=== PATIENT | female | born 1995 | race Two or more races ===

== ENCOUNTER 2020-03-05 13:55 | Emergency (ER) | payer MEDICAID, SELFPAY ==
[2020-03-05 14:01] VITALS: BP 163/83; PULSE 89; RESP 14; TEMP 36.9; O2SAT 99
[2020-03-05 14:13] LABS: Bilirubin Small (Negative); Blood Negative (Negative); Clarity Clear (Clear); Glucose Negative (Negative); Ketones 40 mg/dL (Negative); Leukocyte Esterase Small (Negative); Nitrite Negative (Negative); Specific Gravity >= 1.030 (1.005-1.025)
--- NOTE | 2020-03-05 14:17 | ED.GENADUL_ITS ---
Discharge Plan Disposition Patient Disposition: HOME Condition: Stable Discharge Details Chief Complaint: Urinary Clinical Impression: UTI (urinary tract infection) Primary Care Provider: None,None ED Provider: Keagan Lewis Home Meds and New Rx's Prescriptions: New cephalexin [Keflex] 500 mg capsule 500 mg PO BID Qty: 10 RF: 0 Discharge Instructions Instructions: Urinary Tract Infection in Women (ED) Additional Instructions: Please take full course of antibiotic as prescribed. If you are not interested in having additional children at this time, please use control. Discussed control options with gynecology. In the interim you may wish to pursue barrier protection including condoms. Return to the ER for any worsening or new concerning symptoms. Referrals: Obdulio Cadet MD [ NON-[facility] STAFF PHYSICIAN] - Discharge Data Discharge Date/Time-TO BE ENTERED AT DEPARTURE: 03/05/20 14:47 Medical Decision Making 24-year-old female here with symptoms consistent with UTI. Patient is not septic. Urinalysis reviewed and consistent with UTI. Will start Keflex. Usual customary discharge instructions were provided. HPI General Mode of arrival: ambulatory . Date/Time Provider Initiated Documentation: 03/05/20 14:17 . Limitations to Documentation: no limitations . Information obtained by: patient . HPI Narrative: 24-year-old female here with chief complaint of dysuria. Symptoms started yesterday. Pain described as burning. Increased urinary frequency. No hematuria. No vaginal discharge. No abdominal pelvic pain. She does note subjective fever. Related Data Home Medications Medication Instructions Recorded Confirmed cephalexin [Keflex] 500 mg PO BID #10 cap 03/05/20 Previous Rx's Medication Instructions Recorded cephalexin [Keflex] 500 mg PO BID #10 cap 03/05/20 Allergies Allergy/AdvReac Type Severity Reaction Status Date / Time No Known Allergies Allergy Unverified 03/05/20 14:17 General Stated Complaint: Urinary LUIS F: 3 Review of Systems All systems reviewed & are unremarkable except as noted in HPI and below Constitutional Constitutional: Denies fever(s) Gastrointestinal Gastrointestinal: Denies vomiting Genitourinary Genitourinary: Reports as per HPI [facility] Social History Smoking/Tobacco Use Status: Never Alcohol Intake: never Substance use type: heroin Details: Reports weekly use of heroin. Do you feel safe at home: Yes Do you feel safe in your relationship?: Yes Exam Const General: cooperative and no acute distress [facility] Head: normocephalic and atraumatic Mouth: moist mucous membranes Eyes Conjunctivae: normal conjunctivae Sclera: normal sclerae Resp Auscultation: clear to auscultation bilaterally, no rales, no rhonchi and no wheezes Cardio Rate: regular rate and not tachycardic Rhythm: regular rhythm GI Palpation: soft, not firm, no guarding, no masses, not rigid and nontender Back/Spine/Pelvis Back: no CVA tenderness Skin General skin exam: no rashes or lesions noted Neuro General: patient alert, patient awake, patient oriented x3 and tone normal Extrem General: no edema Psych Appearance: grossly normal Mental Status: mental status grossly normal Course Vital Signs Vital signs: Vital Signs Temperature 36.9 C 03/05/20 14:01 Pulse 89 03/05/20 14:01 Respiratory Rate 14 03/05/20 14:01 Blood Pressure 163/83 H 03/05/20 14:01 Pulse Oximetry 99 03/05/20 14:01 Temperature 36.9 C 03/05/20 14:01 Temperature Source Tympanic 03/05/20 14:01 Pulse 89 03/05/20 14:01 Respiratory Rate 14 03/05/20 14:01 Respiratory Effort Non-Labored 03/05/20 14:16 Blood Pressure 163/83 H 03/05/20 14:01 Blood Pressure Position Sitting 03/05/20 14:01 Pulse Oximetry 99 03/05/20 14:01 Oxygen Delivery Method Room Air 03/05/20 14:01 Oxygen Flow Rate 0 03/05/20 14:01 Pain Level 2 03/05/20 14:09
[2020-03-05 14:30] LABS: WBC 20-50 HPF (0-5)
[2020-03-05 14:31] LABS: Bacteria Few HPF (Negative); C & S Indicated? No/Sq. Contamination
[2020-03-05] MEDS: Cephalexin 500 MG CAP PO (14:45)
--- NOTE | 2020-03-05 15:43 | NUR.NOTE ---
Referral faxed to [facility] to establish.Nursing Note:
== END 2020-03-05 14:47 | disposition home or self-care (01) ==
PROVIDERS: Emergency Provider Student in an Organized Health Care Education/Training Program
DX: N39.0 Urinary tract infection, site not specified (principal)
CPT/HCPCS: 81025; 99283; 81003; 81015

== ENCOUNTER 2020-10-16 12:09 | Outpatient (REF) | payer MEDICAID, SELFPAY ==
--- OUTSIDE RECORDS SUMMARY | 2020-10-16 12:11 | XMS_ITS ---
:1995 Author Care Team Providers Name Role Phone Sabino Sanderson Primary Care Provider Unavailable Allergies Code Code System Name Reaction Severity Status Onset NKDA ? Medications Name Status Start Date Stop Date ? ? methadone Active ? Not available Problems Name Status Onset Date Source ? Preoperative Cardiovascular Examination Active 03/29/20 20 ? Procedures Date Name Performed by ? ? Cesarian Section Information not avai lable Results Lab Results None recorded. Past Encounters 03/29/2020 Preoperative Cardiovascular Examination Sabino Sanderson MD: [address] [place] [phone], Ph. Social History Tobacco Smoking Status Never Smoker Vaccine List None recorded. Plan of Care Reminders Provider Appointments None ? ? recorded. Lab None ? ? recorded. Referral None ? ? recorded. Procedures None ? ? recorded. Surgeries None ? ? recorded. Imaging None ? ? recorded. Vitals Height Weight BMI Blood Pressure 5 ft 5 in 155 lbs 25.8 kg/m2 128/78 mm[Hg]
[2020-10-16 13:52] LABS: HCT 42.2 % (36.0-46.0); HGB 13.8 g/dL (11.2-15.7); MCH 25.8 pg (27.0-33.0); MCHC 32.7 % (32.0-36.0); MPV 8.7 fL (8.0-11.0); Platelet Count 238 10^3/uL (130-400); RBC 5.34 10^6/uL (3.93-5.22); RDW-SD 39.8 fL; WBC 8.65 10^3/uL (4.4-10.8)
[2020-10-16 14:04] LABS: INR 1.1 (0.9-1.1); Prothrombin Time 10.6 sec (9.3-11.0)
[2020-10-16 14:21] LABS: Anion Gap 8.3 mmol/L (3-11); BUN 14 mg/dL (7-18); CO2 29.7 mmol/L (21.0-32.0); CREATININE 0.8 mg/dL (0.55-1.02); Calcium 9.3 mg/dL (8.5-10.1); Chloride 104 mmol/L (98-107); Glucose 96 mg/dL (74-106); Potassium 3.5 mmol/L (3.5-5.1); Sodium 142 mmol/L (136-145)
[2020-10-16 14:22] LABS: HCG Quant, Pregnancy < 1 mIU/mL (1-3)
== END 2020-10-16 12:10 | disposition home or self-care (01) ==
LOC: NCHCN 12:09
PROVIDERS: PCP Physician Assistant; Visit Provider Physician Assistant
DX: Z01.818 Encounter for other preprocedural examination (principal); Z01.812 Encounter for preprocedural laboratory examination
CPT/HCPCS: 80048; 85027; 84702; 85610

== ENCOUNTER 2020-12-29 15:55 | Emergency (ER) | payer MEDICAID, SELFPAY ==
[2020-12-29 16:05] VITALS: BP 110/68; PULSE 62; RESP 18; TEMP 36.8; O2SAT 99
--- NOTE | 2020-12-29 16:22 | ED.GENADUL_ITS ---
Discharge Plan Disposition Patient Disposition: HOME Condition: Good Discharge Details Clinical Impression: Dysuria Primary Care Provider: Tom Payne ED Provider: Bonita Lizama Home Meds and New Rx's Prescriptions: New cephalexin 500 mg capsule 500 mg PO BID Qty: 14 RF: 0 No Action methadone 10 mg tablet 100 mg PO DAILY RF: 0 cephalexin [Keflex] 500 mg capsule 500 mg PO BID Qty: 10 RF: 0 Discharge Instructions Instructions: Dysuria (ED) Additional Instructions: Take antibiotic as prescribed until completed Yogurt daily while on antibiotic If you continue to have episodes, I recommend you follow-up with urology If your symptoms are not completely resolved with the antibiotic, you may need additional evaluation should be reevaluated by your primary care physician Please return with fever, chills, or with any new or worsening complaints Discharge Data Discharge Date/Time-TO BE ENTERED AT DEPARTURE: 12/29/20 19:10 Medical Decision Making Patient is alert, oriented, of decisional capacity, unfortunately patient's visit was prolonged of we are unable to obtain an adequate urinary specimen, she did receive a straight catheterization on the third attempt and urine did not actually show acute abnormality Had a long discussion with patient and recommended pelvic exam to exclude a sexually transmitted disease, patient has declined, she is alert, oriented, of decisional capacity, I did agree to give patient Keflex and I did encourage her to have close outpatient follow-up I do not believe urinary tract infection is the source of her symptoms, I did send her urine for culture which is pending at this time She is afebrile and nontoxic She is aware she needs close outpatient reevaluation No clinical evidence of pyelonephritis, declined pelvic exam, negative Differential Diagnosis Differential Diagnosis: Urinary tract infection, pyelonephritis, sexually transmitted disease, preg Medical Records Medical records reviewed: Yes I reviewed the patient's medical records. Lab Data Lab results reviewed: Yes I reviewed the patient's lab results. HPI this 25 yo female presents with report of dysuria for the past week with suprapubic pressure. denies hematuria or unilateral flank pain. reports fever without chills. denies known chance of or new sexual partner. denies risk of std or unusual vaginal discharge. denies nausea or vomiting. General Date/Time Provider Initiated Documentation: 12/29/20 16:11 . Related Data Home Medications Medication Instructions Recorded Confirmed cephalexin [Keflex] 500 mg PO BID #10 cap 03/05/20 methadone 10 mg tablet 100 mg PO DAILY tab 04/11/20 12/29/20 cephalexin 500 mg PO BID #14 cap 12/29/20 Previous Rx's Medication Instructions Recorded cephalexin [Keflex] 500 mg PO BID #10 cap 03/05/20 cephalexin 500 mg PO BID #14 cap 12/29/20 Allergies Allergy/AdvReac Type Severity Reaction Status Date / Time No Known Allergies Allergy Unverified 12/29/20 16:10 General Stated Complaint: Urinary LUIS F: 4 Review of Systems Narrative: Review of systems obtained x7 aside from where indicated in HPI PFSH Social History Smoking/Tobacco Use Status: Never Smoking risk assessment performed?: Yes Alcohol Intake: never Substance use type: heroin Details: Reports weekly use of heroin. Do you feel safe at home: Yes Do you feel safe in your relationship?: Yes Exam Const General: comfortable and no acute distress GI Other: No CVA tenderness No abdominal tenderness Skin General skin exam: no rashes or lesions noted Neuro General: patient alert and patient oriented x3 Course Vital Signs Vital signs: Vital Signs Temperature 36.8 C 12/29/20 16:05 Pulse 62 12/29/20 16:05 Respiratory Rate 18 12/29/20 16:05 Blood Pressure 110/68 12/29/20 16:05 Pulse Oximetry 99 12/29/20 16:05 Temperature 36.8 C 12/29/20 16:05 Temperature Source Temporal Artery Scan 12/29/20 16:05 Pulse 62 12/29/20 16:05 Respiratory Rate 18 12/29/20 16:05 Respiratory Effort Non-Labored 12/29/20 16:13 Blood Pressure 110/68 12/29/20 16:05 Blood Pressure Position Sitting 12/29/20 16:05 Pulse Oximetry 99 12/29/20 16:05 Oxygen Delivery Method Room Air 12/29/20 16:05 Oxygen Flow Rate 0 12/29/20 16:05 Pain Level 2 12/29/20 16:05
[2020-12-29 16:23] LABS: Bilirubin Negative (Negative); Blood Negative (Negative); Glucose Negative (Negative); Ketones Negative (Negative); Leukocyte Esterase Moderate (Negative); Nitrite Negative (Negative); Specific Gravity 1.015 (1.005-1.025); Urobilinogen 0.2 EU/dL (Up TO 0.2)
[2020-12-29 16:24] LABS: Clarity Cloudy (Clear)
[2020-12-29 16:33] LABS: Epithelial Cells Many HPF (Negative); Other Cells Negative (Negative); RBC Negative HPF (0-2); WBC 20-50 HPF (0-5)
[2020-12-29 16:34] LABS: Bacteria Moderate HPF (Negative); C & S Indicated? No/Sq. Contamination; Casts Negative LPF (Negative); Crystals Negative HPF (Negative); Mucus Negative (Negative)
[2020-12-29 17:30] LABS: Bacteria Moderate HPF (Negative); C & S Indicated? No/Sq. Contamination
[2020-12-29] MEDS: Cephalexin 500 MG CAP PO (19:03)
[2020-12-29 19:12] LABS: Bacteria Negative HPF (Negative); C & S Indicated? No; Casts Negative LPF (Negative); Crystals Negative HPF (Negative); Epithelial Cells Rare HPF (Negative); Mucus Negative (Negative); Other Cells Negative (Negative); RBC 0-2 HPF (0-2); WBC 0-2 HPF (0-5)
== END 2020-12-29 19:10 | disposition home or self-care (01) ==
PROVIDERS: Student in an Organized Health Care Education/Training Program; Emergency Provider Physician Assistant; PCP Physician Assistant
DX: R30.0 Dysuria (principal); R50.9 Fever, unspecified
CPT/HCPCS: 51701; 81025; 99283; 81003; 81015; 87086

== ENCOUNTER 2021-01-02 06:40 | Emergency (ER) | payer MEDICAID, SELFPAY ==
[2021-01-02] VITALS (83 sets, daily range): BP systolic 104–132; BP diastolic 57–82; PULSE 52–101; RESP 6–23; TEMP 36.6–37; O2SAT 94–100
--- NOTE | 2021-01-02 07:00 | RT.EKG_ITS ---
APPROVED REPORT Exam: Resting ECG Patient Location: E HR:66 bpm ECG Measurements Heart Rate 66 AXIS AL 134 P 21 QRSd 94 QRS 53 QT 408 T 15 QTc 419 Conclusion Sinus rhythm...normal P axis, V-rate 60- 99 Atrial premature complex...SV complex w/ short R-R interval
--- NOTE | 2021-01-02 07:00 | DI.CT_ITS ---
EXAM: CT HEAD WO CLINICAL HISTORY: seizure. TECHNIQUE: Imaging Protocol: Axial computed tomography images with coronal and sagittal reformatted images were created and reviewed COMPARISON: No exams were available for comparison FINDINGS: There are no skull fractures nor fluid in the visualized paranasal sinuses. There is no evidence of intracranial hemorrhage, mass effect, or shift of midline structures. There are no extra-axial fluid collections. The ventricles are not enlarged or shifted and there is no blo od within the ventricular system nor within the basal cisterns. There is a benign-appearing meningeal based 9 x 7 x 5 millimeter calcification on over the left parie noris region. Possibly small calcified meningioma. IMPRESSION: No acute intracranial findings on this noninfused CT scan of the brain. Meningeal based 9 x 7 x 5 millimeter high left parietal calcification, possibly representing small me ningioma. No significant mass effect upon the adjacent brain tissue. RADIATION DOSE DELIVERED: 784.86mGy.cm Total DLP DATA REPOSITORY: All CT scans at this facility are submitted to the National Radiology Data Registry (NRDR) Dose Index Registry (DIR) with the [employer] ([employer]). RADIATION OPTIMIZATION: All CT scans at this facility use at least one of these dose optimization te chniques: automated exposure control; mA and/or kV adjustment per patient size (includes targeted exa ms where dose is matched to clinical indication); or iterative reconstruction.
--- NOTE | 2021-01-02 07:05 | ED.GENADUL_ITS ---
Discharge Plan Disposition Patient Disposition: HOME Condition: Improving Discharge Details Clinical Impression: Seizure-like activity, Fever, Opiate use, Vaginal candidiasis, Bacterial vaginosis Primary Care Provider: Tom Payne ED Provider: Ciarra Vigil Home Meds and New Rx's Prescriptions: New metronidazole [Flagyl] 500 mg tablet 500 mg PO BID 7 Days Qty: 14 RF: 0 fluconazole [Diflucan] 150 mg tablet 150 mg PO ONCE Qty: 1 RF: 0 Continued methadone 10 mg tablet 100 mg PO DAILY RF: 0 Discontinued cephalexin 500 mg capsule 500 mg PO BID Qty: 14 RF: 0 Discharge Instructions Instructions: Fever in Adults (ED), Opioid Safety (ED), Opioid Use Disorder (ED) Additional Instructions: The CT scan of your head noted a small brain meningioma which may be an incidental finding and likely not the cause of your possible seizures. You have been given neurology information for follow-up for this for further evaluation. Drink plenty of fluids and get plenty of rest. Alternate tylenol and motrin as needed and directed for pain or fever. Your prescriptions have been sent electronically to your pharmacy. Call the pharmacy to make sure your prescriptions are ready before pickup. Take the prescriptions as directed. Follow-up with your primary care doctor in 1 week again and with neurology in the next 1 to 2 weeks. Return to the emergency department with any worsening or new concerning symptoms. Referrals: Anca Herrmann MD [ [facility] STAFF PHYSICIAN] - Discharge Data Discharge Date/Time-TO BE ENTERED AT DEPARTURE: 01/02/21 15:23 Discharge Physician: Ciarra Vigil Medical Decision Making <Hunter De La Cruz MD - Last Filed: 01/02/21 07:15> 25 yo female with hx of heroin abuse (states only inhales doesn't inject) and last used this morning comes in after what her fiance told ems was seizure like episode. She was seen here on 12/29 and placed on cephalexin for possible uti. She states she has still not been feeling well and had a fever yesterday to 102 per patient. She has no chest pain, cough, rashes, severe headache, neck stiffness. She has no abdominal tenderness on exam, no murmurs, and no stigmata of endocarditis. No meningismus on exam. She is caox4 with no focal motor or sensation deficits with clear speech. I attempted to call her fiance to get a description of what he saw but he did not answer and his voicemail was full so a message could not be left. Unclear cause for her general feeling of being unwell and no clear source for fever yesterday on history or exam. Given her symptoms will obtain labs including blood cultures and lactate, and given the seizure obtain a head ct to evaluate for intracranial pathology such as a mass. Patient may end up requiring an LP to evaluate for possible mounting machine operator infection given the fever and seizure episode today. Pt signed out to oncoming provider pending labs and ct, and final disposition Differential Diagnosis Differential Diagnosis: seizure, sepsis, uti, pneumonia, mounting machine operator infection <Ciarra Vigil DO - Last Filed: 01/03/21 13:42> 0800 --please see Dr. De La Cruz's note for initial presentation, exam and plan. 25-year-old female with a history of recent stopping of her methadone use with daily snorting of heroin use presents for potential seizure-like episode today. Patient was seen here 4 days ago and diagnosed with a UTI and started on Keflex. She denies any change in her urinary frequency or urgency. She admits to a temp of 102 temporal yesterday. She is mainly complaining of nausea at this time. She denies any headache, neck pain, chest pain, shortness of breath, abdominal pain or abnormal vaginal discharge. She states she did have some lower abdominal pain yesterday. Review of her results notes that her urine culture was negative. Dr. De La Cruz discussed that with the concern of fever and potential seizure, to consider a lumbar puncture. He attempted to reach her fianc? but was unable. Patient's right side of her tongue does appear to have a contusion/abrasion consistent with tongue biting injury. She otherwise has no focal deficit and no meningismus or nuchal rigidity on exam. I discussed with patient my recommendation for LP in the setting of fever and seizure but she is refusing. The risks of and disability due to a serious or missed pathology explained and she understands. She is oriented and demonstrates capacity to make decisions. Patient was referred for labs and imaging. Her white blood cell count is 11.5. Her lactate is normal at 1.4. Urinalysis notes trace leukocyte esterase with many epis, few bacteria and negative nitrite but culture done as ordered. UDS positive for opiates, methadone, benzos. Alcohol level negative. Rapid Covid negative. CT head notes a potential 9 x 7 x 5 mm small meningioma but otherwise no acute findings. CT chest abdomen and pelvis notes abundant fecal material and difficult to locate the appendix but no other signs of acute inflammation. There was no evidence of pneumonia or other acute findings. 0930 -- CT had reviewed with Dr. Herrmann who noted that this may be likely incidental and would not be a cause of seizure or preclude LP. 1000 -- Results discussed with patient at bedside and she is requesting to go home. Results also discussed with patient's fianc? over the phone per her consent. I advised that patient stay for lumbar puncture and further evaluation but she is refusing. She again is able to voice back to me my concerns and demonstrates capacity to make decisions. Patient left the room multiple times and walked into the ambulance bay waiting for her ride. AMA form signed. The patient understands her condition and the risks of leaving AMA, including BUT NOT LIMITED TO permanent disability, , etc., and has had an opportunity to ask questions about his/her medical condition. The patient has been informed that he/she may return for care at any time, and has been referred to his/her local medical physician for follow up KATIE. Patient laying in the stretcher while waiting for her ride. Vitals rechecked and stable. 1130 -- pt laying in the stretcher and noted to have twitching activity/neck spasm while awaiting for her ride. I again advised for her to stay in the hospital but she is refusing. She is awake and alert and able to answer questions. She began to have additional more prolonged twitching but is awake and alert. She is now agreeable to stay for further evaluation. She is hesitant but now agreeable with plan for lumbar puncture. Will give a milligram of Ativan. 1220 --lumbar puncture done at bedside which patient tolerated well. Fluid appeared clear. Patient denies any acute complaints at this time. She appears more relaxed after Ativan and denies any headache. 1510 --CSF results noted negative WBCs and normal glucose and protein. There were some RBCs noted. Patient reassessed and she has been requesting to go home. Patient denies any acute complaints. Prescriptions for Diflucan and Flagyl sent electronically to her pharmacy for candidiasis and bacterial vaginosis. Patient offered to speak with the flag football coach but declined. She is familiar with the [facility] clinic and will contact them if she decides to refrain from any further opiate use and resume her methadone or consider Suboxone. She was also advised to stop taking her Keflex as her recent urine culture was negative. Patient was placed on follow-up list for Dr. Herrmann. Usual and customary return precautions given prior to discharge. Medical Records Medical records reviewed: Yes I reviewed the patient's medical records. Imaging Data Radiologic Study: Radiologist's impression: CT HEAD WO CLINICAL HISTORY: seizure. TECHNIQUE: Imaging Protocol: Axial computed tomography images with coronal and sagittal reformatted images were created and reviewed COMPARISON: No exams were available for comparison FINDINGS: There are no skull fractures nor fluid in the visualized paranasal sinuses. There is no evidence of intracranial hemorrhage, mass effect, or shift of midline structures. There are no extra-axial fluid collections. The ventricles are not enlarged or shifted and there is no blood within the ventricular system nor within the basal cisterns. There is a benign-appearing meningeal based 9 x 7 x 5 millimeter calcification on over the left parietal region. Possibly small calcified meningioma. IMPRESSION: No acute intracranial findings on this noninfused CT scan of the brain. Meningeal based 9 x 7 x 5 millimeter high left parietal calcification, possibly representing small meningioma. No significant mass effect upon the adjacent brain tissue. CT CHEST/ABD/PEL W CLINICAL HISTORY: fever, seizure, lower abd pain, r/o acute process. TECHNIQUE: Imaging Protocol: Axial computed tomography images with coronal and sagittal reformatted images were created and reviewed CONTRAST MATERIAL: Intravenous: Omnipaque 350 Contrast volume:100 ml Oral: None COMPARISON: No exams were available for comparison FINDINGS: CHEST: LUNGS: Mild increased markings pleural based in the superior segment right lower lobe. No confluent infiltrate at this level nor elsewhere in the lung hester and there are no pleural effusions. No ominous pulmonary nodules. There are no significant focal findings in the trachea and mainstem bronchi.. MEDIASTINUM: There is no hilar nor mediastinal adenopathy. Visualized thyroid unremarkable.Density in the anterior mediastinal fat is probably remnant thymus tissue. CARDIAC: Heart size is normal. There is no pericardial effusion.Caliber of the thoracic aorta is within normal limits. OSSEOUS: No significant osseous lesions.. ABDOMEN: There is no ascites. LIVER: There are no focal hepatic lesions nor dilatation of intrahepatic ducts. GALLBLADDER/BILIARY: No obvious gallbladder pathology. CBD is not dilated. PANCREAS: Appears somewhat thin for stated age. Pancreatic duct is not dilated. No obvious pancreatic mass. SPLEEN: Mild splenomegaly. No intrasplenic lesions. Splenic and portal veins are patent. ADRENALS: There are no significant adrenal masses. KIDNEYS: No calculi nor hydronephrosis. No solid renal masses. No cysts evident. ABDOMINAL AORTA: Abdominal aorta is not enlarged. LYMPH NODES: There is no retroperitoneal nor paraaortic adenopathy. ABDOMINAL WALL/GI: No evidence of significant anterior abdominal wall hernia. No bowel obstruction. PELVIS: LYMPH NODES: There is no intrapelvic nor inguinal adenopathy. GI: Appendix is difficult to identify separate structure. No obvious evidence of appendicitis.No evidence of sigmoid diverticulitis.. Abundant fecal material in the colon. URINARY BLADDER: No calculi nor masses evident REPRODUCTIVE: Appears age-appropriate OSSEOUS: No significant osseous lesions. 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 Minimal anterolisthesis of L5. No osseous lesions. IMPRESSION: 1. Abundant fecal material noted throughout the colon. No obvious appendicitis. The appendix is difficult to locate is a separate structure. 2. Mild splenomegaly noted. No intrasplenic lesions. 3. Minimal increased markings in the superior segment right lower lobe. No confluent infiltrate. No pleural effusions. No intrathoracic adenopathy. Lab Data Lab results reviewed: Yes I reviewed the patient's lab results. Labs: 01/02/21 10:25 Blood Blood Culture - Preliminary NO GROWTH 24 HOURS 01/02/21 07:40 Blood Blood Culture - Preliminary NO GROWTH 24 HOURS 01/02/21 12:30 Cerebrospinal Fluid Body Fluid Culture - Pending 01/02/21 12:30 Cerebrospinal Fluid Gram Stain - Final 01/02/21 10:00 Vaginal Vaginitis Screen - Final 01/02/21 07:50 Urine - Clean Catch Urine Culture - Pending Laboratory Tests Range/Units 01/02/21 01/02/21 01/02/21 07:05 07:25 07:40 WBC (4.4-10.8) 10^3/uL RBC (3.93-5.22) 10^6/uL Hgb (11.2-15.7) g/dL Hct (36.0-46.0) % MCV (80-95) fL MCH (27.0-33.0) pg MCHC (32.0-36.0) % RDW (11.7-14.6) % Plt Count (130-400) 10^3/uL MPV (8.0-11.0) fL Immature Gran % Neutrophils % Lymphocytes % Monocytes % Eosinophils % Basophils % Nucleated RBC % % Absolute Neutrophils (1.2-6.7) 10^3/uL Absolute Lymphocytes (1.2-3.4) 10^3/uL Absolute Monocytes (0.1-0.8) 10^3/uL Absolute Eosinophils (0.0-0.7) 10^3/uL Absolute Basophils (0.0-0.2) 10^3/uL Xanthochromia VBG Lactate (0.6-1.4) mmol/L Sodium (136-145) mmol/L 142 Potassium (3.5-5.1) mmol/L 4.0 Chloride (98-107) mmol/L 102 Carbon Dioxide (21.0-32.0) mmol/L 28.9 Anion Gap (3-11) mmol/L 11.1 H BUN (7-18) mg/dL 12 Creatinine (0.55-1.02) mg/dL 0.8 Estimated GFR/1.73 m2 (mL/min/1.73m2) >= 60.00 Glucose (74-106) mg/dL 103 Calcium (8.5-10.1) mg/dL 9.8 Total Bilirubin (0.2-1.0) mg/dL 0.9 Conjugated Bilirubin (0.0-0.2) mg/dL 0.2 AST (15-37) U/L 12 L ALT (14-59) U/L 17 Alkaline Phosphatase (46-116) U/L 113 Troponin I (<0.06) ng/mL Total Protein (6.4-8.2) g/dL 8.2 Albumin (3.4-5.0) g/dL 4.8 Urine Color (Yellow) Urine Clarity (Clear) Urine pH (5-8) Ur Specific [place] (1.005-1.025) Urine Protein (Negative) mg/dL Urine Ketones (Negative) mg/dL Urine Blood (Negative) Urine Nitrite (Negative) Urine Bilirubin (Negative) Urine Urobilinogen (Up TO 0.2) EU/dL Ur Leukocyte Esterase (Negative) Urine RBC (0-2) HPF Urine WBC (0-5) HPF Ur Epithelial Cells (Negative) HPF Urine Crystals (Negative) HPF Urine Bacteria (Negative) HPF Urine Casts (Negative) LPF Urine Mucus (Negative) Ur Culture Indicated? Urine Glucose (Negative) mg/dL CSF Tube Number CSF Color CSF Clarity CSF WBC (0-5) /uL CSF RBC (0-5) /mm3 CSF RBC (1) (0-5) /mm3 CSF Diff Comment CSF Glucose (40-70) mg/dL CSF Total Protein (15-45) mg/dL Urine Opiates Screen (Negative) Urine Methadone Screen (Negative) Ur Barbiturates Screen (Negative) Ur Tricyclics Screen (Negative) Ur Amphetamines Screen (Negative) U Benzodiazepines Scrn (Negative) Urine Cocaine Screen (Negative) Ur THC Screen (Negative) Ethyl Alcohol (<3) mg/dL < 3.0 Chlamydia/GC Source Chlamydia DNA Probe COVID-19 Source Cancelled Nasopharyx SARS-CoV-2 (PCR) Cancelled Negative HSV Source Description HSV I DNA PCR (Negative) HSV II DNA PCR (Negative) N.gonorrhoeae DNA Probe Range/Units 01/02/21 01/02/21 01/02/21 07:40 07:40 07:40 WBC (4.4-10.8) 10^3/uL 11.50 H RBC (3.93-5.22) 10^6/uL 5.29 H Hgb (11.2-15.7) g/dL 14.1 Hct (36.0-46.0) % 41.9 MCV (80-95) fL 79.2 L MCH (27.0-33.0) pg 26.7 L MCHC (32.0-36.0) % 33.7 RDW (11.7-14.6) % 13.2 Plt Count (130-400) 10^3/uL 245 MPV (8.0-11.0) fL 8.8 Immature Gran % 0.5 Neutrophils % 82.5 Lymphocytes % 10.9 Monocytes % 5.8 Eosinophils % 0.1 Basophils % 0.2 Nucleated RBC % % 0 Absolute Neutrophils (1.2-6.7) 10^3/uL 9.49 H Absolute Lymphocytes (1.2-3.4) 10^3/uL 1.25 Absolute Monocytes (0.1-0.8) 10^3/uL 0.67 Absolute Eosinophils (0.0-0.7) 10^3/uL 0.01 Absolute Basophils (0.0-0.2) 10^3/uL 0.02 Xanthochromia VBG Lactate (0.6-1.4) mmol/L 1.4 Sodium (136-145) mmol/L Potassium (3.5-5.1) mmol/L Chloride (98-107) mmol/L Carbon Dioxide (21.0-32.0) mmol/L Anion Gap (3-11) mmol/L BUN (7-18) mg/dL Creatinine (0.55-1.02) mg/dL Estimated GFR/1.73 m2 (mL/min/1.73m2) Glucose (74-106) mg/dL Calcium (8.5-10.1) mg/dL Total Bilirubin (0.2-1.0) mg/dL Conjugated Bilirubin (0.0-0.2) mg/dL AST (15-37) U/L ALT (14-59) U/L Alkaline Phosphatase (46-116) U/L Troponin I (<0.06) ng/mL < 0.05 Total Protein (6.4-8.2) g/dL Albumin (3.4-5.0) g/dL Urine Color (Yellow) Urine Clarity (Clear) Urine pH (5-8) Ur Specific [place] (1.005-1.025) Urine Protein (Negative) mg/dL Urine Ketones (Negative) mg/dL Urine Blood (Negative) Urine Nitrite (Negative) Urine Bilirubin (Negative) Urine Urobilinogen (Up TO 0.2) EU/dL Ur Leukocyte Esterase (Negative) Urine RBC (0-2) HPF Urine WBC (0-5) HPF Ur Epithelial Cells (Negative) HPF Urine Crystals (Negative) HPF Urine Bacteria (Negative) HPF Urine Casts (Negative) LPF Urine Mucus (Negative) Ur Culture Indicated? Urine Glucose (Negative) mg/dL CSF Tube Number CSF Color CSF Clarity CSF WBC (0-5) /uL CSF RBC (0-5) /mm3 CSF RBC (1) (0-5) /mm3 CSF Diff Comment CSF Glucose (40-70) mg/dL CSF Total Protein (15-45) mg/dL Urine Opiates Screen (Negative) Urine Methadone Screen (Negative) Ur Barbiturates Screen (Negative) Ur Tricyclics Screen (Negative) Ur Amphetamines Screen (Negative) U Benzodiazepines Scrn (Negative) Urine Cocaine Screen (Negative) Ur THC Screen (Negative) Ethyl Alcohol (<3) mg/dL Chlamydia/GC Source Chlamydia DNA Probe COVID-19 Source SARS-CoV-2 (PCR) HSV Source Description HSV I DNA PCR (Negative) HSV II DNA PCR (Negative) N.gonorrhoeae DNA Probe Range/Units 01/02/21 01/02/21 01/02/21 07:50 07:50 10:00 WBC (4.4-10.8) 10^3/uL RBC (3.93-5.22) 10^6/uL Hgb (11.2-15.7) g/dL Hct (36.0-46.0) % MCV (80-95) fL MCH (27.0-33.0) pg MCHC (32.0-36.0) % RDW (11.7-14.6) % Plt Count (130-400) 10^3/uL MPV (8.0-11.0) fL Immature Gran % Neutrophils % Lymphocytes % Monocytes % Eosinophils % Basophils % Nucleated RBC % % Absolute Neutrophils (1.2-6.7) 10^3/uL Absolute Lymphocytes (1.2-3.4) 10^3/uL Absolute Monocytes (0.1-0.8) 10^3/uL Absolute Eosinophils (0.0-0.7) 10^3/uL Absolute Basophils (0.0-0.2) 10^3/uL Xanthochromia VBG Lactate (0.6-1.4) mmol/L Sodium (136-145) mmol/L Potassium (3.5-5.1) mmol/L Chloride (98-107) mmol/L Carbon Dioxide (21.0-32.0) mmol/L Anion Gap (3-11) mmol/L BUN (7-18) mg/dL Creatinine (0.55-1.02) mg/dL Estimated GFR/1.73 m2 (mL/min/1.73m2) Glucose (74-106) mg/dL Calcium (8.5-10.1) mg/dL Total Bilirubin (0.2-1.0) mg/dL Conjugated Bilirubin (0.0-0.2) mg/dL AST (15-37) U/L ALT (14-59) U/L Alkaline Phosphatase (46-116) U/L Troponin I (<0.06) ng/mL Total Protein (6.4-8.2) g/dL Albumin (3.4-5.0) g/dL Urine Color (Yellow) Yellow Urine Clarity (Clear) Sl cloudy Urine pH (5-8) 8.5 H Ur Specific [place] (1.005-1.025) 1.020 Urine Protein (Negative) mg/dL Negative Urine Ketones (Negative) mg/dL 40 H Urine Blood (Negative) Trace-intact H Urine Nitrite (Negative) Negative Urine Bilirubin (Negative) Negative Urine Urobilinogen (Up TO 0.2) EU/dL 1.0 H Ur Leukocyte Esterase (Negative) Trace H Urine RBC (0-2) HPF 3-5 H Urine WBC (0-5) HPF 5-10 Ur Epithelial Cells (Negative) HPF Many Urine Crystals (Negative) HPF Negative Urine Bacteria (Negative) HPF Few Urine Casts (Negative) LPF Negative Urine Mucus (Negative) Negative Ur Culture Indicated? C&s done as ordered Urine Glucose (Negative) mg/dL Negative CSF Tube Number CSF Color CSF Clarity CSF WBC (0-5) /uL CSF RBC (0-5) /mm3 CSF RBC (1) (0-5) /mm3 CSF Diff Comment CSF Glucose (40-70) mg/dL CSF Total Protein (15-45) mg/dL Urine Opiates Screen (Negative) Positive A Urine Methadone Screen (Negative) Positive A Ur Barbiturates Screen (Negative) Negative Ur Tricyclics Screen (Negative) Negative Ur Amphetamines Screen (Negative) Negative U Benzodiazepines Scrn (Negative) Positive A Urine Cocaine Screen (Negative) Negative Ur THC Screen (Negative) Negative Ethyl Alcohol (<3) mg/dL Chlamydia/GC Source Cancelled Chlamydia DNA Probe Cancelled COVID-19 Source SARS-CoV-2 (PCR) HSV Source Description HSV I DNA PCR (Negative) HSV II DNA PCR (Negative) N.gonorrhoeae DNA Probe Cancelled Range/Units 01/02/21 01/02/21 01/02/21 10:10 12:30 12:30 WBC (4.4-10.8) 10^3/uL RBC (3.93-5.22) 10^6/uL Hgb (11.2-15.7) g/dL Hct (36.0-46.0) % MCV (80-95) fL MCH (27.0-33.0) pg MCHC (32.0-36.0) % RDW (11.7-14.6) % Plt Count (130-400) 10^3/uL MPV (8.0-11.0) fL Immature Gran % Neutrophils % Lymphocytes % Monocytes % Eosinophils % Basophils % Nucleated RBC % % Absolute Neutrophils (1.2-6.7) 10^3/uL Absolute Lymphocytes (1.2-3.4) 10^3/uL Absolute Monocytes (0.1-0.8) 10^3/uL Absolute Eosinophils (0.0-0.7) 10^3/uL Absolute Basophils (0.0-0.2) 10^3/uL Xanthochromia Absent VBG Lactate (0.6-1.4) mmol/L Sodium (136-145) mmol/L Potassium (3.5-5.1) mmol/L Chloride (98-107) mmol/L Carbon Dioxide (21.0-32.0) mmol/L Anion Gap (3-11) mmol/L BUN (7-18) mg/dL Creatinine (0.55-1.02) mg/dL Estimated GFR/1.73 m2 (mL/min/1.73m2) Glucose (74-106) mg/dL Calcium (8.5-10.1) mg/dL Total Bilirubin (0.2-1.0) mg/dL Conjugated Bilirubin (0.0-0.2) mg/dL AST (15-37) U/L ALT (14-59) U/L Alkaline Phosphatase (46-116) U/L Troponin I (<0.06) ng/mL Cancelled Total Protein (6.4-8.2) g/dL Albumin (3.4-5.0) g/dL Urine Color (Yellow) Urine Clarity (Clear) Urine pH (5-8) Ur Specific [place] (1.005-1.025) Urine Protein (Negative) mg/dL Urine Ketones (Negative) mg/dL Urine Blood (Negative) Urine Nitrite (Negative) Urine Bilirubin (Negative) Urine Urobilinogen (Up TO 0.2) EU/dL Ur Leukocyte Esterase (Negative) Urine RBC (0-2) HPF Urine WBC (0-5) HPF Ur Epithelial Cells (Negative) HPF Urine Crystals (Negative) HPF Urine Bacteria (Negative) HPF Urine Casts (Negative) LPF Urine Mucus (Negative) Ur Culture Indicated? Urine Glucose (Negative) mg/dL CSF Tube Number 4 CSF Color Colorless CSF Clarity Clear CSF WBC (0-5) /uL 0 CSF RBC (0-5) /mm3 30 H CSF RBC (1) (0-5) /mm3 155 H CSF Diff Comment CSF Glucose (40-70) mg/dL CSF Total Protein (15-45) mg/dL Urine Opiates Screen (Negative) Urine Methadone Screen (Negative) Ur Barbiturates Screen (Negative) Ur Tricyclics Screen (Negative) Ur Amphetamines Screen (Negative) U Benzodiazepines Scrn (Negative) Urine Cocaine Screen (Negative) Ur THC Screen (Negative) Ethyl Alcohol (<3) mg/dL Chlamydia/GC Source Chlamydia DNA Probe COVID-19 Source SARS-CoV-2 (PCR) HSV Source Description Not Applicable HSV I DNA PCR (Negative) Negative HSV II DNA PCR (Negative) Negative N.gonorrhoeae DNA Probe Range/Units 01/02/21 12:30 WBC (4.4-10.8) 10^3/uL RBC (3.93-5.22) 10^6/uL Hgb (11.2-15.7) g/dL Hct (36.0-46.0) % MCV (80-95) fL MCH (27.0-33.0) pg MCHC (32.0-36.0) % RDW (11.7-14.6) % Plt Count (130-400) 10^3/uL MPV (8.0-11.0) fL Immature Gran % Neutrophils % Lymphocytes % Monocytes % Eosinophils % Basophils % Nucleated RBC % % Absolute Neutrophils (1.2-6.7) 10^3/uL Absolute Lymphocytes (1.2-3.4) 10^3/uL Absolute Monocytes (0.1-0.8) 10^3/uL Absolute Eosinophils (0.0-0.7) 10^3/uL Absolute Basophils (0.0-0.2) 10^3/uL Xanthochromia VBG Lactate (0.6-1.4) mmol/L Sodium (136-145) mmol/L Potassium (3.5-5.1) mmol/L Chloride (98-107) mmol/L Carbon Dioxide (21.0-32.0) mmol/L Anion Gap (3-11) mmol/L BUN (7-18) mg/dL Creatinine (0.55-1.02) mg/dL Estimated GFR/1.73 m2 (mL/min/1.73m2) Glucose (74-106) mg/dL Calcium (8.5-10.1) mg/dL Total Bilirubin (0.2-1.0) mg/dL Conjugated Bilirubin (0.0-0.2) mg/dL AST (15-37) U/L ALT (14-59) U/L Alkaline Phosphatase (46-116) U/L Troponin I (<0.06) ng/mL Total Protein (6.4-8.2) g/dL Albumin (3.4-5.0) g/dL Urine Color (Yellow) Urine Clarity (Clear) Urine pH (5-8) Ur Specific [place] (1.005-1.025) Urine Protein (Negative) mg/dL Urine Ketones (Negative) mg/dL Urine Blood (Negative) Urine Nitrite (Negative) Urine Bilirubin (Negative) Urine Urobilinogen (Up TO 0.2) EU/dL Ur Leukocyte Esterase (Negative) Urine RBC (0-2) HPF Urine WBC (0-5) HPF Ur Epithelial Cells (Negative) HPF Urine Crystals (Negative) HPF Urine Bacteria (Negative) HPF Urine Casts (Negative) LPF Urine Mucus (Negative) Ur Culture Indicated? Urine Glucose (Negative) mg/dL CSF Tube Number CSF Color CSF Clarity CSF WBC (0-5) /uL CSF RBC (0-5) /mm3 CSF RBC (1) (0-5) /mm3 CSF Diff Comment CSF Glucose (40-70) mg/dL 61 CSF Total Protein (15-45) mg/dL 27 Urine Opiates Screen (Negative) Urine Methadone Screen (Negative) Ur Barbiturates Screen (Negative) Ur Tricyclics Screen (Negative) Ur Amphetamines Screen (Negative) U Benzodiazepines Scrn (Negative) Urine Cocaine Screen (Negative) Ur THC Screen (Negative) Ethyl Alcohol (<3) mg/dL Chlamydia/GC Source Chlamydia DNA Probe COVID-19 Source SARS-CoV-2 (PCR) HSV Source Description HSV I DNA PCR (Negative) HSV II DNA PCR (Negative) N.gonorrhoeae DNA Probe ECG Data Attestation: I personally reviewed and interpreted this ECG (s) as follows: Interpretation: Rate of 66, sinus, no STEMI, nondiagnostic. UT 134. QRS 94. QTc 419. HPI <Hunter De La Cruz MD - Last Filed: 01/02/21 07:15> General Mode of arrival: ambulatory . Date/Time Provider Initiated Documentation: 01/02/21 06:53 . Limitations to Documentation: no limitations . Information obtained by: patient . History of Present Illness 25 year old F presents to the emergency department with the chief complaint of not feeling well, Patient started experiencing this day(s) (3) and it has been constant. No relieving factors improve symptom(s), No exacerbating factors reported . Patient notes fever/chills. Patient did receive the following treatments prior to arrival, none Related Data Home Medications Medication Instructions Recorded Confirmed methadone 10 mg tablet 100 mg PO DAILY tab 04/11/20 01/02/21 fluconazole [Diflucan] 150 mg PO ONCE #1 tab 01/02/21 metronidazole [Flagyl] 500 mg PO BID 7 Days #14 tab 01/02/21 Previous Rx's Medication Instructions Recorded fluconazole [Diflucan] 150 mg PO ONCE #1 tab 01/02/21 metronidazole [Flagyl] 500 mg PO BID 7 Days #14 tab 01/02/21 Allergies Allergy/AdvReac Type Severity Reaction Status Date / Time No Known Allergies Allergy Unverified 01/02/21 06:51 General Stated Complaint: Seizure LUIS F: 3 Review of Systems <Hunter De La Cruz MD - Last Filed: 01/02/21 07:15> All systems reviewed & are unremarkable except as noted in HPI and below Cardiovascular Cardiovascular: Denies chest pain and Denies dyspnea Respiratory Respiratory: Denies cough and Denies dyspnea Gastrointestinal Gastrointestinal: Denies abdominal pain and Denies vomiting PFSH <Hunter De La Cruz MD - Last Filed: 01/02/21 07:15> Medical History (Updated 01/02/21 @ 15:21 by Ciarra Vigil DO) Heroin abuse Social History Smoking/Tobacco Use Status: Never Smoking risk assessment performed?: Yes Alcohol Intake: never Drug use: Daily Substance use type: heroin Details: Reports weekly use of heroin. Do you feel safe at home: Yes Do you feel safe in your relationship?: Yes Exam <Hunter De La Cruz MD - Last Filed: 01/02/21 07:15> Const General: no acute distress Orientation: alert [facility] Head: normal to inspection Ears: external ears normal General nose exam: external nose normal Mouth: moist mucous membranes Eyes General: appearance normal, both eyes and all related structures Neck Neck: normal visual inspection Resp Effort & Inspection: normal respiratory effort and able to speak in complete sentences Cardio Rate: regular rate GI Palpation: soft and nontender Skin General skin exam: no rashes or lesions noted Neuro General: patient alert and patient oriented x3 Extrem General: normal to inspection Psych Mental Status: mental status grossly normal Course <Hunter De La Cruz MD - Last Filed: 01/02/21 07:15> Vital Signs Vital signs: Vital Signs Temperature 36.8 C 01/02/21 06:43 Pulse 80 01/02/21 06:43 Respiratory Rate 16 01/02/21 06:43 Blood Pressure 132/79 01/02/21 06:43 Pulse Oximetry 97 01/02/21 06:43 Temperature 36.8 C 01/02/21 06:43 Pulse 80 01/02/21 06:43 Respiratory Rate 16 01/02/21 06:43 Respiratory Effort Non-Labored 01/02/21 06:53 Respiratory Depth Normal 01/02/21 06:53 Respiratory Pattern Normal 01/02/21 06:53 Blood Pressure 132/79 01/02/21 06:43 Pulse Oximetry 97 01/02/21 06:43 Pain Level 6 01/02/21 06:43 <Ciarra Vigil DO - Last Filed: 01/03/21 13:42> Lumbar Puncture Time Out Performed: Yes Patient Position: sitting upright/leaning forward Skin Prep: Povidone-Iodine 1% Local Anesthetic: Lidocaine 1% Amount of anesthesia used (mL): 2 Spinal Needle Gauge: 22G Interspace Used: L4-L5 Fluid Initially Obtained: clear Complications: none Sign Out <Hunter De La Cruz MD - Last Filed: 01/02/21 07:15> Sign Out Data: Sign Out Comment: patient started on cephalexin for possible uti 12/29 and since has not been feeling well. Unable to really state other specific symptoms other than she states a fever to 102 yesterday. She used heroin this morning and her fiance called ems after reported seizure like activity. Arrives stable speaking in full sentences without deficits. Pending labs and ct of the head as well as chest xray and revaluation Last updated by Hunter De La Cruz MD at 01/02/21 07:16
[2021-01-02 07:55] LABS: Abs Immature Grans 0.06 10^3/uL (0.0-0.06); Absolute Basophil Count 0.02 10^3/uL (0.0-0.2); Absolute Eosinophil Count 0.01 10^3/uL (0.0-0.7); Absolute Lymphocyte Count 1.25 10^3/uL (1.2-3.4); Absolute Monocyte Count 0.67 10^3/uL (0.1-0.8); Absolute Neutrophil Count 9.49 10^3/uL (1.2-6.7); Basophils % 0.2; Eosinophils % 0.1; HCT 41.9 % (36.0-46.0); HGB 14.1 g/dL (11.2-15.7); Immature Grans % 0.5; Lactate 1.4 mmol/L (0.6-1.4); Lymphocytes % 10.9; MCH 26.7 pg (27.0-33.0); MCHC 33.7 % (32.0-36.0); MCV 79.2 fL (80-95); MPV 8.8 fL (8.0-11.0); Monocytes % 5.8; Neutrophils % 82.5; Nucleated RBC 0 %; Platelet Count 245 10^3/uL (130-400); RBC 5.29 10^6/uL (3.93-5.22); RDW 13.2 % (11.7-14.6); RDW-SD 37.2 fL
[2021-01-02] MEDS: Normal Saline 1,000 ML 1000 ML IV (08:06)
[2021-01-02] MEDS: Normal Saline Flush 10 ML SYR IVP ×2 (08:06→08:52)
[2021-01-02 08:12] LABS: ALT 17 U/L (14-59); AST 12 U/L (15-37); Albumin 4.8 g/dL (3.4-5.0); Alkaline Phosphatase 113 U/L (46-116); Anion Gap 11.1 mmol/L (3-11); BUN 12 mg/dL (7-18); Bilirubin, Direct 0.2 mg/dL (0.0-0.2); Bilirubin, Total 0.9 mg/dL (0.2-1.0); CO2 28.9 mmol/L (21.0-32.0); CREATININE 0.8 mg/dL (0.55-1.02); Calcium 9.8 mg/dL (8.5-10.1); Chloride 102 mmol/L (98-107); Glucose 103 mg/dL (74-106); Sodium 142 mmol/L (136-145); Total Protein 8.2 g/dL (6.4-8.2)
[2021-01-02 08:13] LABS: ETHANOL BLOOD < 3.0 mg/dL (<3)
[2021-01-02 08:15] LABS: Troponin I < 0.05 ng/mL (<0.06)
[2021-01-02 08:16] LABS: Bilirubin Negative (Negative); Blood Trace-intact (Negative); Clarity Sl Cloudy (Clear); Glucose Negative (Negative); Ketones 40 mg/dL (Negative); Leukocyte Esterase Trace (Negative); Nitrite Negative (Negative); pH 8.5 (5-8)
[2021-01-02 08:20] LABS: COVID-19 PCR Negative (Negative)
[2021-01-02 08:28] LABS: Bacteria Few HPF (Negative); C & S Indicated? C&S Done As Ordered; Casts Negative LPF (Negative); Crystals Negative HPF (Negative); Epithelial Cells Many HPF (Negative); Mucus Negative (Negative)
[2021-01-02 08:32] LABS: Tricyclic Antidepressants Negative (Negative)
[2021-01-02 08:34] LABS: *AMPHETAMINES SCREEN URINE Negative (Negative); *BARBITURATES SCREEN URINE Negative (Negative); *BENZODIAZEPINES SCREEN URINE Positive (Negative); Cannabinoids THC Negative (Negative); Cocaine Screen,Urine Negative (Negative); METHADONE URINE SCREEN Positive (Negative); OPIATES URINE SCREEN Positive (Negative)
--- NOTE | 2021-01-02 08:42 | DI.CT_ITS ---
EXAM: CT CHEST/ABD/PEL W CLINICAL HISTORY: fever, seizure, lower abd pain, r/o acute process. TECHNIQUE: Imaging Protocol: Axial computed tomography images with coronal and sagittal reformatted images were created and reviewed CONTRAST MATERIAL: Intravenous: Omnipaque 350 Contrast volume:100 ml Oral: None COMPARISON: No exams were available for comparison FINDINGS: CHEST: LUNGS: Mild increased markings pleural based in the superior segment right lower lobe. No confluent infiltrate at this level nor elsewhere in the lung hester and there are no pleural effusions. No donald nous pulmonary nodules. There are no significant focal findings in the trachea and mainstem bronchi. . MEDIASTINUM: There is no hilar nor mediastinal adenopathy. Visualized thyroid unremarkable.Density in the anterior mediastinal fat is probably remnant thymus tissue. CARDIAC: Heart size is normal. There is no pericardial effusion.Caliber of the thoracic aorta is wit hin normal limits. OSSEOUS: No significant osseous lesions.. ABDOMEN: There is no ascites. LIVER: There are no focal hepatic lesions nor dilatation of intrahepatic ducts. GALLBLADDER/BILIARY: No obvious gallbladder pathology. CBD is not dilated. PANCREAS: Appears somewhat thin for stated age. Pancreatic duct is not dilated. No obvious pancreat ic mass. SPLEEN: Mild splenomegaly. No intrasplenic lesions. Splenic and portal veins are patent. ADRENALS: There are no significant adrenal masses. KIDNEYS: No calculi nor hydronephrosis. No solid renal masses. No cysts evident. ABDOMINAL AORTA: Abdominal aorta is not enlarged. LYMPH NODES: There is no retroperitoneal nor paraaortic adenopathy. ABDOMINAL WALL/GI: No evidence of significant anterior abdominal wall hernia. No bowel obstruction. PELVIS: LYMPH NODES: There is no intrapelvic nor inguinal adenopathy. GI: Appendix is difficult to identify separate structure. No obvious evidence of appendicitis.No viviana dence of sigmoid diverticulitis.. Abundant fecal material in the colon. URINARY BLADDER: No calculi nor masses evident REPRODUCTIVE: Appears age-appropriate OSSEOUS: No significant osseous lesions. 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 Minimal anterolisthesis of L5. No osseous lesions. IMPRESSION: 1. Abundant fecal material noted throughout the colon. No obvious appendicitis. The appendix is dif ficult to locate is a separate structure. 2. Mild splenomegaly noted. No intrasplenic lesions. 3. Minimal increased markings in the superior segment right lower lobe. No confluent infiltrate. No pleural effusions. No intrathoracic adenopathy. RADIATION DOSE DELIVERED: 1,135.23mGy.cm Total DLP DATA REPOSITORY: All CT scans at this facility are submitted to the National Radiology Data Registry (NRDR) Dose Index Registry (DIR) with the [employer] (ACR). RADIATION OPTIMIZATION: All CT scans at this facility use at least one of these dose optimization te chniques: automated exposure control; mA and/or kV adjustment per patient size (includes targeted exa ms where dose is matched to clinical indication); or iterative reconstruction.
[2021-01-02] MEDS: Normal Saline - Diluent 50 ML VIAL IV (08:46)
[2021-01-02] MEDS: Omnipaque 350 MG/ML 100 ML BTL IJ (08:46)
[2021-01-02] MEDS: Prochlorperazine 10 MG/2 ML VIAL IVP (08:52)
[2021-01-02] MEDS: ACETAMINOPHEN 1,000 MG/100 ML BTL 400 MG IVPB (08:53)
--- OUTSIDE RECORDS SUMMARY | 2021-01-02 10:35 | XMS_ITS ---
[...] 03/29/2020 Preoperative Cardiovascular Examination Sabino Sanderson MD: [address] [place] [id number], Ph. Social History Tobacco Smoking Status Never [...]
--- OUTSIDE RECORDS SUMMARY | 2021-01-02 10:36 | XMS_ITS ---
:1995 Author Care Team Providers Name Role Phone Fredy Veras A Primary Care Provider Unavailable Allergies Code Code System Name Reaction Severity Status Onset NKDA ? Medications Name Status Start Date Stop Date ? ? methadone Active 07/06/2018 Not available 120mg through [facility] metronidazole 500 mg tablet Completed ? 06/08 Take 1 tablet twice a day by oral route for 7 days. Plus (calcium carbonate) 27 mg iron-1 mg tablet Complet ed ? 07/06/2018 Take 1 tablet every day by oral route. Problems Name Status Onset Date Source ? 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 Unknown 03/08/2018 ? Procedures Date Name Performed by ? 03/07/2018 US, Obstetric, Transabdominal + [facility] (Internal) Transvaginal [address], [place] [phone] (Work Place) 03/23/2018 US, Obstetric, Transabdominal + [facility] (Internal) Transvaginal [address] [place], [place] [id number] (Work Place) 03/23/2018 US, Obstetric, 1St Trimester [facility] (Internal) [address] [place] [address] (Work Place) 04/18/2018 US, Obstetric, Transabdominal + [facility] (Internal) Transvaginal [address] [place] [address] (Work Place) Results Lab Results Date Name Specimen Result Interpretation Description Value Range Status Address ? 07/06/2018 CBC W/ Auto BLD High Wbc 12.8 5.0-10.0 Final [place] Diff 10*3/uL 10*3/uL [facility] L ab (Internal) : [address] ? ? BLD - Rbc 4.34 4.10-5.30 Final [place] 10*6/uL 10*6/uL [facility] L ab (Internal) : [address] ? ? BLD - Hgb 13.1 g/dL 12.0-16.0 Final Nort h g/dL [facility] L ab (Internal) : [address] ? ? BLD - Hct 38.3 % 37.0-47.[address] [facility] L ab (Internal) : [address] ? ? BLD - Mcv 88.2 fL 80.0-96.0 Final [facility] L ab (Internal) : [address] ? ? BLD - Mch 30.2 pg 26.0-32.[address] [facility] L ab (Internal) : [address] ? ? BLD - Mchc 34.2 g/dL 31.0-35.0 Final Nort h g/dL [facility] L ab (Internal) : [address] ? ? BLD - Rdw 13.0 % 11.5-14.5 Final [facility] L ab (Internal) : [address] ? ? BLD - Plt 208 130-450 Final [place] 10*3/uL 10*3/uL [facility] (Internal) : [address] ? ? BLD - Anc 9.82 ? Final [place] 10*3/uL [facility] (Internal) : [address] ? ? BLD High Neutro 77.1 % 40.0-75.[address] [facility] L ab (Internal) : [address] ? ? BLD Low Lymph 14.6 % 20.0-50.[address] [facility] L ab (Internal) : [address] ? ? BLD - [place] 6.8 % 2.0-10.[address] [facility] L ab (Internal) : [address] ? ? BLD Low Eos 0.6 % 1.0-6.0 % Final [facility] L ab (Internal) : [address] ? ? BLD - Baso 0.2 % 0.0-1.0 % Final [facility] (Internal) : [address] ? ? BLD - Ig 0.7 % 0.0-0.9 % Final [facility] ab (Internal) : [address] 07/06/2018 Type + BLD - Abo O ? Final [place] Screen, [facility] L ab (Internal) : [address] ? ? BLD - Rh positive ? Final [facility] ab (Internal) : [address] ? ? BLD - Ab Scrn negative negative Final Nort h [facility] ab (Internal) : [address] 07/06/2018 Drug Screen, UR - Thc negative neg (50 Isabel [place] Urine NG/mL NG/mL) [facility] (Internal) : [address] ? ? UR - Pcp negative neg (25 Final [place] NG/mL) [facility] ab (Internal) : [address] ? ? UR - Mary negative neg (150 Final [place] NG/mL) [facility] ab (Internal) : [address] ? ? UR - Met negative neg (500 Final [place] NG/mL) [facility] ab (Internal) : [address] ? ? UR ABNORMAL Opi positive neg (100 Final Nort h NG/mL) [facility] L ab (Internal) : [address] ? ? UR - Amp negative neg (500 Final [place] NG/mL) [facility] L [facility] (Internal) : [address] ? ? UR - Bzo negative neg (150 Final [place] NG/mL) [facility] L [facility] (Internal) : [address] ? ? UR - Tca negative neg (300 Final [place] NG/mL) [facility] L ab (Internal) : [address] ? ? UR ABNORMAL Mtd positive neg (200 Final Nort h NG/mL) [facility] L ab (Internal) : [address] ? ? UR - Bar negative neg (200 Final [place] NG/mL) [facility] L ab (Internal) : [address] ? ? UR - Oxy negative neg (100 Final [facility] NG/mL) [facility] (Internal) : [address] ? ? UR - Ppx negative neg (300 Final [facility] NG/mL) [facility] (Internal) : [address] ? ? UR - Bup negative neg (10 Final [facility] NG/mL) [facility] (Internal) : [address] 07/06/2018 HIV (1+2) Ab S - HIV 1/2 negative negat [facility] Screen, Antigen [facility] L [facility] Antibody (Interna l): [address] 07/06/2018 Hepatitis C S - Hep C Ab negative negat [facility] Virus Ab, W Rfx PCR Coun try Serum Hospital L ab (Internal) : [address] 07/06/2018 HBsAg S - Hep B negative negat Final Nort h (Hepatitis B Surface Ag [facility] Surface Ag), Hosp ital Lab Serum (Internal) : [address] 07/06/2018 Methadone, UR - EDDP-[place] [address]16[address] cutoff: Final [place] QN, Confirm, GC-MS NG/mL 100 NG/mL [facility] U[facility] Hospital L ab (Internal) : [address] ? ? UR - Methadone 2968 NG/mL cutoff: Final N orth -by GC-MS 100 NG/mL Coun try Hospital L ab (Internal) : [address] ? ? UR - Methadone positive. ? Final Nor th Interpreta [facility] Hospital L ab (Internal) : [address] 07/06/2018 Opiates, UR - Codeine-b 148 NG/mL cutoff: [facility] Qualitative, y lc-MS/MS 25 NG/mL [facility] L ab (Internal) : [address] ? ? UR - Dihydroco negative cutoff: Final Nor th deine-by NG/mL 25 NG/mL Countr y lc-MS/MS Hospital Lab (Internal) : [address] ? ? UR - Hydrocodo negative cutoff: Final Nor th ne-by NG/mL 25 NG/mL [facility] lc-MS/MS Hospital Lab (Internal) : [address] ? ? UR - Norhydroc negative cutoff: Final Nor th odone-by NG/mL 25 NG/mL Countr y lc-MS/MS Hospital Lab (Internal) : [address] ? ? UR - Hydromorp 124 NG/mL cutoff: Final No rth edita-by 25 NG/mL [facility] lc-MS/MS Hospital Lab (Internal) : [address] ? ? UR - Oxycodone negative cutoff: Final Nor th -by NG/mL 25 NG/mL [facility] lc-MS/MS Hospital Lab (Internal) : [address] ? ? UR - Noroxycod negative cutoff: Final Nor th one-by NG/mL 25 NG/mL [facility] lc-MS/MS Hospital Lab (Internal) : [address] ? ? UR - Oxymorpho negative cutoff: Final Nor th ne-by NG/mL 25 NG/mL [facility] lc-MS/MS Hospital Lab (Internal) : [address] ? ? UR - Noroxymor negative cutoff: Final Nor th phone-by NG/mL 25 NG/mL Countr y lc-MS/MS Hospital Lab (Internal) : [address] ? ? UR - Naloxone- negative cutoff: Final Nor th by NG/mL 25 NG/mL [facility] lc-MS/MS Hospital Lab (Internal) : [address] ? ? UR - Morphine- 5041 NG/mL cutoff: Final N orth by 25 NG/mL [facility] lc-MS/MS Hospital Lab (Internal) : [address] ? ? UR - Opiates positive. ? Final [place] Interpreta [facility] t[facility] Hospital L ab (Internal) : [address] [facility] 07/06/2018 Drug Screen, UR - Drugs see below ? Isabel l [place] Urine Detected: [facility] L ab (Internal) : [address] 07/06/2018 RPR (Rapid BLD - Obs RPR non-reacti non-react Final [place] Plasma ve kiley [facility] Re[facility]), Hospital Lab Serum (Internal) : [address] 07/06/2018 Rubella Ab, BLD - Obs Rbla positive positive F inal [place] Serum [facility] L ab (Internal) : [address] 07/06/2018 Pathology TISS - Report results ? Final N orth Study below [facility] ab (Internal) : [address] 03/08/2018 Chlamydia - Catp sent to ? Final No rth Trachomatis reference Co untry + Neisseria lab Hospi noris Lab Gonorrhea (Drapery Cutter Machine al): rRNA, QL, [address] ? ? - Gcatp sent to ? Final [place] reference [facility] L ab (Internal) : [address] ? ? - Specimen see ? Final [place] Descriptio comments Coun try Hospital L ab (Internal) : [address] ? ? - Chlamydia negative ? Final Nort h Result [facility] ab (Internal) : [address] ? ? - GC Result negative ? Final Nort h [facility] ab (Internal) : [address] 03/08/2018 Pap Test, MISC - Pap see report ? Final [place] Thinprep, [facility] Cervical [facility] Lab (Internal) : [address] ? ? MISC - Report results ? Final [place] below [facility] L ab (Internal) : [address] Past Encounters None recorded. Social History Tobacco Smoking Status Never Smoker Vaccine List None recorded. Plan of Care Reminders Provider Appointments None ? ? recorded. Lab None ? ? recorded. Referral None ? ? recorded. Procedures None ? ? recorded. Surgeries None ? ? recorded. Imaging None ? ? recorded. Vitals 06/28/2018 10:00AM Procedure 40 Weight Blood Pressure 74.5 kg 110/70 mm[Hg] 06/02/2018 09:30AM OB 20 Weight Blood Pressure 71.21 kg 118/66 mm[Hg] 05/05/2018 09:30AM OB 20 Weight Blood Pressure 68.58 kg 112/72 mm[Hg] 04/18/2018 10:30AM OB 10 Weight Blood Pressure 66.76 kg 114/78 mm[Hg] 03/08/2018 11:00AM New Patient 30 Weight Blood Pressure 65.41 kg 124/70 mm[Hg]
--- NOTE | 2021-01-02 11:09 | NUR.NOTE ---
Nursing Note: Pt up ad soo removing monitor and ambulating around room asking when she can leave. Pale, diaphoretic, appears to be having involuntary twitching movements in neck to right side. Remains awake and alert through those movements/episodes. C/O abdominal pain but denies any other symptoms. Expressed concern that pt may leave and have another seizure, pt states she is not staying and that her fiance is on his way to pick her up. is aware
[2021-01-02] MEDS: LORazepam 2 MG/ML VIAL 1 MG IVP (11:42)
[2021-01-02 13:23] LABS: Glucose (CSF) 61 mg/dL (40-70); Total Protein (CSF) 27 mg/dL (15-45)
[2021-01-02 14:29] LABS: Clarity Clear; Tube # 4; Xanthochromia Absent
[2021-01-02 14:30] LABS: RBC 30 /mm3 (0-5); WBC 0 /uL (0-5)
[2021-01-02 14:33] LABS: RBC Tube#1 CSF 155 /mm3 (0-5)
--- NOTE | 2021-01-02 15:32 | NUR.NOTE ---
Nursing Note: referral to neuro faxed. MG
[2021-01-02 22:55] LABS: HSV 1 DNA Result Negative (Negative); HSV 2 DNA Result Negative (Negative)
[2021-01-03 14:54] LABS: Chlamydia Result Negative (Negative); GC Result Negative (Negative)
== END 2021-01-02 15:23 | disposition home or self-care (01) ==
PROVIDERS: Emergency Medicine; Emergency Provider Physician Assistant; PCP Physician Assistant
DX: R56.9 Unspecified convulsions (principal); R50.9 Fever, unspecified; B37.3 Candidiasis of vulva and vagina; N76.0 Acute vaginitis; F11.20 Opioid dependence, uncomplicated; Z20.822 Contact with and (suspected) exposure to COVID-19
CPT/HCPCS: 36415; 62270; 74177; 80053; 80307; 81025; 82945; 87040; 87491; 87529; 87591; 87635; 89050; 89051; 93005; 96361; 96374; 96375; 99285; 70450; 71260; 80320; 81003; 81015; 82248; 83605; 84157; 84484; 85025; 87070; 87086; 87205; 87480; 87510; 87660; 93010; 99284; J0131; J0780; J2060; J3490

== ENCOUNTER 2021-12-11 08:56 | Outpatient (REF) | payer MEDICAID, SELFPAY ==
[2021-12-10 16:34] LABS: Bilirubin Negative (Negative); Blood Negative (Negative); Clarity Clear (Clear); Glucose Negative (Negative); Ketones Negative (Negative); Leukocyte Esterase Small (Negative); Nitrite Negative (Negative); Specific Gravity 1.025 (1.005-1.025); Urobilinogen 0.2 EU/dL (Up TO 0.2)
[2021-12-10 16:40] LABS: HCT 44.6 % (36.0-46.0); HGB 15.4 g/dL (11.2-15.7); MCH 28.7 pg (27.0-33.0); MCHC 34.5 % (32.0-36.0); MCV 83.1 fL (80-95); MPV 9.6 fL (8.0-11.0); Platelet Count 211 10^3/uL (130-400); RBC 5.37 10^6/uL (3.93-5.22); RDW 12.5 % (11.7-14.6); RDW-SD 37.3 fL; WBC 7.67 10^3/uL (4.4-10.8)
[2021-12-10 16:42] LABS: Bacteria Moderate HPF (Negative); C & S Indicated? No/Sq. Contamination; Casts Negative LPF (Negative); Crystals Negative HPF (Negative); Epithelial Cells Many HPF (Negative); Mucus Trace (Negative); RBC 0-2 HPF (0-2)
[2021-12-10 16:48] LABS: Prothrombin Time 10.4 sec (9.3-11.0)
[2021-12-10 17:11] LABS: Anion Gap 9.7 mmol/L (3-11); BUN 14 mg/dL (7-18); CO2 28.3 mmol/L (21.0-32.0); CREATININE 0.8 mg/dL (0.55-1.02); Calcium 8.6 mg/dL (8.5-10.1); Chloride 104 mmol/L (98-107); Glucose 85 mg/dL (74-106); Potassium 3.6 mmol/L (3.5-5.1); Sodium 142 mmol/L (136-145)
[2021-12-10 17:12] LABS: HCG Quant, Pregnancy < 1 mIU/mL (1-3)
[2021-12-12 10:25] LABS: HIV-1/2 Ag & Ab Screen Negative (Negative)
== END 2021-12-11 08:57 | disposition home or self-care (01) ==
LOC: LBN 08:56
PROVIDERS: PCP Physician Assistant
DX: Z01.818 Encounter for other preprocedural examination (principal)
CPT/HCPCS: 80048; 85027; 87389; 81003; 81015; 84702; 85610; 85730

== ENCOUNTER 2021-12-17 02:55 | Outpatient (CLI) | payer MEDICAID, SELFPAY ==
[2021-12-17 11:34] LABS: PTT Activated 28.2 sec (21.0-27.5)
== END 2021-12-17 02:56 | disposition home or self-care (01) ==
LOC: LBO 02:55
PROVIDERS: PCP Physician Assistant; Visit Provider Plastic Surgery
DX: Z01.812 Encounter for preprocedural laboratory examination (principal)
CPT/HCPCS: 36415; 85730

== ENCOUNTER 2022-07-02 17:14 | Outpatient (REF) | payer MEDICAID, SELFPAY | END 2022-07-02 17:15 | disposition home or self-care (01) | LOC: NCHCN 17:14 | PROVIDERS: PCP Physician Assistant; Visit Provider Nurse Practitioner Family | DX: R30.0 Dysuria (principal) | CPT/HCPCS: 87086 ==

== ENCOUNTER 2023-01-13 11:07 | Outpatient (REF) | payer MEDICAID, SELFPAY ==
[2023-01-13 14:06] LABS: Bacteria Moderate HPF (Negative); C & S Indicated? C&S Done As Ordered; Casts Negative LPF (Negative); Crystals Negative HPF (Negative); Epithelial Cells Many HPF (Negative); Mucus Trace (Negative); RBC 0-2 HPF (0-2)
== END 2023-01-13 11:08 | disposition home or self-care (01) ==
LOC: LBN 11:07
PROVIDERS: PCP Physician Assistant; Visit Provider Physician Assistant Medical
DX: N89.8 Other specified noninflammatory disorders of vagina (principal); N39.0 Urinary tract infection, site not specified
CPT/HCPCS: 81015; 87086; 87480; 87510; 87660

== ENCOUNTER 2023-03-05 14:00 | Outpatient (REF) | payer MEDICAID, SELFPAY ==
[2023-03-05 21:16] LABS: Bacteria Few HPF (Negative); C & S Indicated? No/Sq. Contamination; Casts Negative LPF (Negative); Crystals Negative HPF (Negative); Epithelial Cells Moderate HPF (Negative); Mucus Negative (Negative)
== END 2023-03-05 14:01 | disposition home or self-care (01) ==
LOC: LBN 14:00
PROVIDERS: PCP Physician Assistant; Visit Provider Physician Assistant Medical
DX: R82.79 Other abnormal findings on microbiological examination of urine (principal); N89.8 Other specified noninflammatory disorders of vagina
CPT/HCPCS: 81015; 87086; 87480; 87510; 87660

== ENCOUNTER 2023-05-04 10:11 | Outpatient (CLI) | payer MEDICAID, SELFPAY ==
--- NOTE | 2023-05-04 10:15 | RT.EKG_ITS ---
APPROVED REPORT Exam: Resting ECG Reason for Exam: High Risk Medication Patient Location: O HR:77 bpm ECG Measurements Heart Rate 77 AXIS WI 138 P 67 QRSd 101 QRS 58 QT 407 T 17 QTc 461 Conclusion Sinus rhythm...normal P axis, V-rate 50- 99 Otherwise normal ECG RSR' in V1 or V2,
== END 2023-05-04 10:12 | disposition home or self-care (01) ==
PROVIDERS: PCP Physician Assistant; Visit Provider Family Medicine
DX: Z79.899 Other long term (current) drug therapy (principal)
CPT/HCPCS: 93005; 93010

== ENCOUNTER 2023-08-17 13:01 | Outpatient (REF) | payer MEDICAID, SELFPAY | END 2023-08-17 13:02 | disposition home or self-care (01) | LOC: LBN 13:01 | PROVIDERS: PCP Physician Assistant; Visit Provider Nurse Practitioner Family | DX: N76.0 Acute vaginitis (principal); R30.0 Dysuria | CPT/HCPCS: 87086; 87480; 87510; 87660 ==

== ENCOUNTER 2024-05-22 15:06 | Outpatient (REF) | payer MEDICAID, SELFPAY | END 2024-05-22 15:07 | disposition home or self-care (01) | LOC: LBN 15:06 | PROVIDERS: PCP Physician Assistant; Visit Provider Nurse Practitioner Family | DX: N30.00 Acute cystitis without hematuria (principal); N76.0 Acute vaginitis | CPT/HCPCS: 87086; 87480; 87510; 87660 ==

== ENCOUNTER 2024-12-01 15:51 | Outpatient (REF) | payer MEDICAID, SELFPAY | END 2024-12-01 15:52 | disposition home or self-care (01) | LOC: LBN 15:51 | PROVIDERS: PCP Physician Assistant; Visit Provider Physician Assistant Medical | DX: N89.8 Other specified noninflammatory disorders of vagina (principal) | CPT/HCPCS: 81015; 87086; 87480; 87510; 87660 ==

== ENCOUNTER 2025-07-26 12:31 | Outpatient (REF) | payer MEDICAID, SELFPAY | END 2025-07-26 12:32 | disposition home or self-care (01) | LOC: NCHCN 12:31 | PROVIDERS: PCP Physician Assistant; Visit Provider Physician Assistant | DX: N89.8 Other specified noninflammatory disorders of vagina (principal) | CPT/HCPCS: 87480; 87510; 87660 ==